=== PATIENT | male | born 1985 | race Caucasian/White ===

== ENCOUNTER 2025-08-01 16:15 | Emergency (ER) | payer MEDICAID, SELFPAY ==
[2025-08-01 17:06] VITALS: BP 138/99; PULSE 103; RESP 18; TEMP 36.9; O2SAT 99; BMI 27.1
--- NOTE | 2025-08-01 18:38 | XR_ITS ---
Examination: CT abdomen and pelvis without contrast. Coronal 3-D reconstructions. Sagittal 2-D reconstructions. Date and time of exam: August 01, 2025, 1902 hours INDICATIONS: Right flank pain beginning this morning CTDI: vol (mGy): 6.94 DLP: (mGycm): 379 Technique: Axial images of the abdomen have been obtained, 3 mm slice thickness Intravenous contrast material has not been administered. Low dose protocols were performed. One or more of the following dose reduction techniques were used; automated exposure control, adjustment of the mA and/or KV according to patient size, use of iterative reconstruction technique. Findings: No focal liver or splenic lesions No gallstones No pancreatic or adrenal mass No renal or ureteral calculi, no hydronephrosis No pericecal inflammatory change No bladder mass or bladder calculi No prostatomegaly Grade 1 spondylolisthesis L5 on S1 IMPRESSION: No renal or ureteral calculi, no hydronephrosis No CT findings of appendicitis or bowel obstruction No bladder mass or bladder calculi
[2025-08-01 19:21] LABS: Basophils # (Auto) 0.1 Thou/mm3 (0.0-0.2); Basophils % (Auto) 0 % (0-2.5); Eosinophils # (Auto) 0.3 Thou/mm3 (0.0-0.5); Eosinophils % (Auto) 2 % (0-10); Hematocrit 48.0 % (41.0-53.0); Hemoglobin 16.3 g/dL (13.5-16.0); Immature Granulocytes Auto 0.07 Thou/mm3 (0.00-0.00); Lymphocytes # (Auto) 3.0 Thou/mm3 (1.0-4.8); Lymphocytes % (Auto) 21 % (10-50); Mean Corpuscular HGB Conc 34.0 g/dl (31.0-37.0); Mean Corpuscular Hemoglobin 30.9 pg (25.0-35.0); Mean Corpuscular Volume 91 fL (80-100); Monocytes # (Auto) 1.0 Thou/mm3 (0.0-0.8); Monocytes % (Auto) 7 % (0-12); Neutrophils # (Auto) 10.3 Thou/mm3 (1.8-7.7); Neutrophils % (Auto) 70 % (37-80); Nucleated Red Blood Cell # 0.00 Thou/mm3 (0.00-0.00); Nucleated Red Blood Cell % 0 /100 WBC (0); Platelet Count 277 Thou/mm3 (140-440); RDW Standard Deviation 45.9 fL (35.1-43.9); Red Blood Count 5.27 Miln/mm3 (4.50-5.90); White Blood Count 14.8 Thou/mm3 (3.8-10.6)
[2025-08-01 19:40] LABS: Alanine Aminotransferase 24 U/L (10-49); Albumin, Serum 5.0 gm/dL (3.5-5.0); Albumin/Globulin Ratio 1.7 (1.2-2.2); Alkaline Phosphatase 97 U/L (46-116); Anion Gap 10 (7-16); Aspartate Amino Transferase 20 U/L (0-34); BUN/Creatinine Ratio 10 Ratio (12-20); Bilirubin,Total 0.2 mg/dL (0.3-1.2); Blood Urea Nitrogen 11 mg/dL (9-23); Calcium 10.3 mg/dL (8.3-10.6); Calcium (Corrected) 10.3 mg/dL (8.5-10.1); Carbon Dioxide 28.2 mMol/L (20.0-31.0); Chloride 104 mMol/L (98-107); Creatinine (Component) 1.1 mg/dL (0.6-1.3); Estimated Creatinine Clearance 81.8 mL/min (>60); Globulin 2.9 gm/dL (2.3-3.5); Glucose 56 mg/dL (74-106); Lipase 29 U/L (12-53); Osmolality,Calculated 280 (275-295); Potassium 3.9 mMol/L (3.4-5.1); Sodium 142 mMol/L (136-145); Total Protein 7.9 gm/dL (5.7-8.2); eGFR > 60 See Note
--- NOTE | 2025-08-01 22:03 | PD.EDRME ---
Rapid Medical Screening Exam RME Arrival date/time: 08/01/25 16:15 This is a case of 40-year-old male with no medical history came into the emergency room due to bilateral flank radiating to lower back for 3 days patient have history of kidney stone worsening of the symptoms this patient decided to sought consult here in the emergency room Chief Complaint: Back Pain/Injury Time Seen by Provider: 08/01/25 18:30 Vital signs: Vital Signs Temperature 98.5 F 08/01/25 17:06 Pulse Rate 103 H 08/01/25 17:06 Respiratory Rate 18 08/01/25 17:06 Blood Pressure 138/99 H 08/01/25 17:06 Pulse Oximetry (%) 99 08/01/25 17:06 Oxygen Delivery Method Room Air 08/01/25 17:06
== END 2025-08-01 21:20 | disposition left against medical advice (07) ==
PROVIDERS: Nurse Practitioner Family; Emergency Provider Emergency Medicine
DX: M54.9 Dorsalgia, unspecified (principal)
CPT/HCPCS: 36415; 74176; 80053; 81001; 83690; 85025; 99283